=== PATIENT | male | born 1960 | race Caucasian/White ===

== ENCOUNTER 2016-07-24 21:43 | Emergency (ER) | payer OTHER ==
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
--- NOTE | 2016-07-25 00:15 | ED ORDER SUMMARY ---
..... Patient: PAUL BURGER OrderSheet [facility] VisitID: [id number] [address] [place] [address] 55y, M Registration Date/Time: 07/24/2016 ORDER SHEET Weight: 122.4 kg (stated) Allergies: NKDA GENERAL ORDERS: MEDICATION ORDERS: Ativan PO 1 mg (HIGH ALERT MEDICATION, NOW) (23:25 07/24/2016 Maty MONTANO) (23:41 Dave Junior) IV FLUIDS: ORDER SHEET NOTES: [Electronically signed by Bonnie Cavazos PA-C (01:27 07/25/2016)] [Electronically signed by Rory Rider R.N. (01:35 07/25/2016)] [Electronically locked/signed by Rory Rider R.N. (01:35 07/25/2016)]
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
--- NOTE | 2016-07-25 00:15 | ED ORDER SUMMARY ---
..... Patient: PAUL BURGER OrderSheet [facility] VisitID: [id number] [address] [place] [address] 55y, M Registration Date/Time: 07/24/2016 ORDER SHEET Weight: 122.4 kg (stated) Allergies: NKDA GENERAL ORDERS: MEDICATION ORDERS: Ativan PO 1 mg (HIGH ALERT MEDICATION, NOW) (23:25 07/24/2016 Maty MONTANO) (23:41 Dave Junior) IV FLUIDS: ORDER SHEET NOTES: [Electronically signed by Bonnie Cavazos PA-C (01:27 07/25/2016)] [Electronically signed by Rory Rider R.N. (01:35 07/25/2016)] [Electronically locked/signed by Rory Rider R.N. (01:35 07/25/2016)]
--- NOTE | 2016-07-25 01:35 | ED MED RECONCILIATION SUMMARY ---
Patient: PAUL BURGER Medication Reconciliation Report [facility] VisitID: [id number] [address] [place] [address] 55y, M Registration Date/Time: 07/24/2016 Weight: 122.4 kg Height/Length: 70 in. BMI: 38.7 ALLERGIES: NKDA The patient's Home Medications are listed below: THE FOLLOWING MEDICATIONS NEED TO BE RECONCILED: Levoxyl Oral 100 mcg, daily Percocet Oral Tegretol Oral 200 mg, 2x a day Verapamil HCl Oral, daily The source(s) of the original Home Medication information: Not obtained. The following Medications were given to the patient in the Emergency Department: Ativan [PO] PO 1 mg, administered: 07/24/2016 11:26:00 PM The following Medications were prescribed to the patient: Hydrocodone/APAP 5mg / 325mg: take 1 orally every 6 hours as needed for pain. Dispense twelve (12). No refill. -- Bonnie Cavazos PA-C Ativan 1 mg: take 1-2 orally every 8 hours as needed for anxiety. Dispense ten (10). No refill. Substitution is permissible. -- Bonnie Cavazos PA-C
--- NOTE | 2016-07-25 01:35 | ED MED RECONCILIATION SUMMARY ---
Patient: PAUL BURGER Medication Reconciliation Report [facility] VisitID: [id number] [address] [place] [address] 55y, M Registration Date/Time: 07/24/2016 Weight: 122.4 kg Height/Length: 70 in. BMI: 38.7 ALLERGIES: NKDA The patient's Home Medications are listed below: THE FOLLOWING MEDICATIONS NEED TO BE RECONCILED: Levoxyl Oral 100 mcg, daily Percocet Oral Tegretol Oral 200 mg, 2x a day Verapamil HCl Oral, daily The source(s) of the original Home Medication information: Not obtained. The following Medications were given to the patient in the Emergency Department: Ativan [PO] PO 1 mg, administered: 07/24/2016 11:26:00 PM The following Medications were prescribed to the patient: Hydrocodone/APAP 5mg / 325mg: take 1 orally every 6 hours as needed for pain. Dispense twelve (12). No refill. -- Bonnie Cavazos PA-C Ativan 1 mg: take 1-2 orally every 8 hours as needed for anxiety. Dispense ten (10). No refill. Substitution is permissible. -- Bonnie Cavazos PA-C
--- NOTE | 2016-07-25 01:35 | ED DISCHARGE INSTRUCTIONS ---
Patient: PAUL BURGER General Instructions [facility] VisitID: [id number] [place] [address] 55y, M Registration Date/Time: 07/24/2016 Medication refill. Anxiety reaction with hyperventilation. Obsessive compulsive disorder. INSTRUCTIONS Stay with responsible adult family member (or other responsible adult) for two days until better. Rest. Other diet: no caffeine or stimulant drinks. Do not smoke. (see your pcp Monday if not improved.). Warnings: GENERAL WARNINGS: Return or contact your physician immediately if your condition worsens or changes unexpectedly, if not improving as expected, or if other problems arise. Prescription Medications: Hydrocodone/APAP 5mg / 325mg: take 1 orally every 6 hours as needed for pain. Dispense twelve (12). No refill. Ativan 1 mg: take 1-2 orally every 8 hours as needed for anxiety. Dispense ten (10). No refill. Substitution is permissible. Follow-up: Follow up with your doctor Monday if not well. Call for an appointment. Understanding of the discharge instructions verbalized by patient and family. ADDITIONAL INFORMATION Stress Reaction Anxiety is the feeling we all get when we think something bad might happen. It is a normal response to stress and usually causes only a mild reaction. When anxiety becomes more severe, emotions may interfere with daily life. In some cases, you may not even be aware of what it is youre anxious about! During an anxiety reaction, you may feel like you are helpless, nervous, depressed or irritable. Your body may show signs of anxiety in many ways. You may experience dry mouth, shakiness, dizziness, weakness, trouble breathing, chest pressure, headache, nausea, diarrhea, tiredness, inability to sleep or sexual problems. Home Care: 1) Try to locate the sources of stress in your life. They may not be obvious! These may include: -- Daily hassles of life which pile up (traffic jams, missed appointments, car troubles, etc.) -- Major life changes, both good (new baby, job promotion) and bad (loss of job, loss of loved one) -- Overload: feeling that you have too many responsibilities and can't take care of all of them at once -- Feeling helpless, feeling that your problems are beyond what youre able to solve 2) Notice how your body reacts to stress. Learn to listen to your body signals. This will help you take action before the stress becomes severe. 3) When you can, do something about the source of your stress. (Avoid hassles, limit the amount of change that happens in your life at one time and take a break when you feel overloaded). 4) Unfortunately, many stressful situations cannot be avoided. It is necessary to learn HOW TO MANAGE STRESS better. There are many proven methods that will reduce your anxiety. These include simple things like exercise, good nutrition and adequate rest. Also, there are certain techniques that are helpful: relaxation and breathing exercises, visualization, biofeedback and meditation. For more information about this, consult your doctor or go to a local bookstore and review the many books and tapes available on this subject. Follow Up If you feel that your anxiety is not responding to self-help measures, contact your doctor or make an appointment with a counselor. Get Prompt Medical Attention if any of the following occur: -- Your symptoms get worse -- Chest pain or trouble breathing -- Severe headache not relieved by rest and mild pain reliever -- Rapid or irregular heartbeat, fainting You have been given the following additional information: Anxiety Reaction Stay with responsible adult family member (or other responsible adult) for two days until better. Rest. (Electronically signed by Bonnie Cavazos PA-C 07/25/2016 1:27)
--- NOTE | 2016-07-25 01:35 | ED MAR SUMMARY ---
..... Medication Administration Record [facility] [address] [place] [address] Patient: PAUL BURGER Visit ID: [id number] 55y, M Weight: 122.4 kg Height/Length: 70 in BMI: 38.7 ALLERGIES: NKDA Given 23:26 07/24/2016 Rory Morales R.N. Medication Administered: ATIVAN [PO] (LORAZEPAM), Dose: 1 mg Tablets PO. Medication Ordered: Ativan PO 1 mg (HIGH ALERT MEDICATION, NOW).
--- NOTE | 2016-07-25 01:35 | ED MAR SUMMARY ---
..... Medication Administration Record [facility] [address] [place] [address] Patient: PAUL BURGER Visit ID: [id number] 55y, M Weight: 122.4 kg Height/Length: 70 in BMI: 38.7 ALLERGIES: NKDA Given 23:26 07/24/2016 Rory Morales R.N. Medication Administered: ATIVAN [PO] (LORAZEPAM), Dose: 1 mg Tablets PO. Medication Ordered: Ativan PO 1 mg (HIGH ALERT MEDICATION, NOW).
== END 2016-07-25 00:15 | disposition home or self-care (01) ==
LOC: ED SRH 21:43
DX: F42.9 Obsessive-compulsive disorder, unspecified (principal); F41.1 Generalized anxiety disorder; R06.4 Hyperventilation; Z76.0 Encounter for issue of repeat prescription; I10 Essential (primary) hypertension; E07.9 Disorder of thyroid, unspecified; Z79.899 Other long term (current) drug therapy

== ENCOUNTER 2017-01-28 10:39 | Outpatient (CLI) | payer OTHER | END 2017-01-28 23:00 | LOC: LAB SRH 10:39 | DX: E03.9 Hypothyroidism, unspecified (principal); I10 Essential (primary) hypertension; E78.00 Pure hypercholesterolemia, unspecified; Z12.5 Encounter for screening for malignant neoplasm of prostate; G40.909 Epilepsy, unspecified, not intractable, without status epilepticus | CPT/HCPCS: 90074; 90100; 90648; 91046; 92095; 92690; 93140; 95059 ==